=== PATIENT | female | born 1980 | race Caucasian/White ===

== ENCOUNTER 2019-12-09 10:45 | Inpatient (IN) | payer OTHER, SELFPAY ==
[2019-12-09 10:58] VITALS: BMI 23.8
[2019-12-09 11:02] VITALS: BP 118/72; PULSE 57; RESP 16; TEMP 36.6; O2SAT 97
--- NOTE | 2019-12-09 11:05 | W.ED.PSYCH ---
HPI - Psych General: Chief Complaint: Psychiatric Symptoms Stated Complaint: NPU DIRECT ADMIT Time Seen by Provider: 12/09/19 10:50 Source: patient and EMS Mode of arrival: EMS Limitations: no limitations History of Present Illness: HPI Narrative: 31-year-old female who is being transferred here from [facility] for auditory hallucinations along with some suicidal thoughts. Patient placed in a 96-hour hold there. Patient thinks she is going to of COVID. She denies any cough or fever. Associated symptoms: Reports auditory hallucinations and depression Review of Systems Const: Denies: fever(s), chills, body aches or change in appetite Eyes: Denies: blurry vision or eye discomfort ENMT: Denies: throat pain or dental pain Card: Denies: chest pain Resp: Denies: dyspnea GI: Denies: abdominal pain, nausea, vomiting or diarrhea : Denies: dysuria Musc: Denies: neck pain or back pain Skin/Breast: Denies: rash Neuro: Denies: headache(s) Psych: Reports: depression and auditory hallucinations Mitch/Lymph: Denies: easy bruising All/Imm: Denies: urticaria [facility] Female Reproductive History: Date of last menstrual period: 12/09/19 Physical Exam Const: COMMON NORMALS: no acute distress, patient oriented x3 and healthy appearing HENMT: COMMON NORMALS: normocephalic and atraumatic HEAD & SCALP: normocephalic and atraumatic Eye: COMMON NORMALS: Equal, round and reactive pupils present and EOMs intact bilaterally PUPIL: Yes Equal, round and reactive pupils present Neck/C-Spine: COMMON NORMALS: full ROM and supple Chest: COMMONS NORMALS: normal inspection of the chest and normal palpation of entire chest wall Resp: COMMON NORMALS: normal respiratory effort, No retractions, No use of accessory muscles and clear to auscultation bilaterally AUSCULTATION: clear to auscultation bilaterally Cardio: COMMON NORMALS: regular rate, regular rhythm and No murmurs present (Cardio) RATE: regular rate RHYTHM: regular rhythm GI: COMMON NORMALS: Normal to inspection, nondistended, normoactive bowel sounds present, Soft to palpation, non-tender and no masses PALPATION: Yes Soft to palpation Extremity: COMMON NORMALS: normal to inspection and full ROM Neuro: COMMON NORMALS: patient oriented x3, moves all extremities and no focal motor deficits Psych: COMMON NORMALS: Normal thought process present and cooperative MOOD & AFFECT: Yes depressed mood THOUGHT PROCESS: Normal thought process present Skin: COMMON NORMALS: no rashes or lesions noted and no wounds GENERAL SKIN EXAM: no rashes or lesions noted MDM - Psych MDM Narrative: Medical decision making narrative: Patient presents here with suicidal ideations. Patient's being admitted to the psychiatric unit. She has no cough or fever. I spoke to Dr. Randolph and will admit. Patient is also having hallucinations Coding Level of Care Code ED X Ray Technician for Chg Fwd Exam Comprehensive
[2019-12-09 11:42] VITALS: BP 111/79; PULSE 57; RESP 16; TEMP 36.6; O2SAT 97
[2019-12-09 11:57] VITALS: BP 120/71; PULSE 50; RESP 16; TEMP 37.1; O2SAT 99
[2019-12-09 14:00] VITALS: BP 120/71; PULSE 50; RESP 16; TEMP 37.1; O2SAT 99
--- NOTE | 2019-12-09 16:55 | PC.NURSE ---
PATIENT REPORTED THAT SHE BREAST FEEDS HER BABY AND IS WORRIED THAT HER BREAST MILK WILL DRY UP. ABLE TO GET A HAND HELD PUMP FROM THE HEALTH DEPARTMENT. RELAYED THIS TO PATIENT WHO STARTED YELLING AND SLAMMING DISHES FROM HER TRAY IN THE DAYROOM. STATES YOU JUST WANNA HOLD ME HERE FOR ANOTHER THIRTY DAYS, I NEVER SEE MY CHILDREN AND YOUR TRYING TO KEEP ME AWAY FROM THEM. PATIENT IS PARANOID AND THINKS THAT SOMEONE HAS STOLEN HER IDENTITY. RE-DIRECTED PATIENT WHO IS STILL UPSET, AND REFUSES TO USE BREAST PUMP AT THIS TIME.PATIENT REPORTS HER IS BOTTLE FEEDING WITH FORMULA AT THIS TIME WILL CONT TO MONITOR, SUPPORT AND REDIRECT NEEDED.
[2019-12-09 19:58] VITALS: BP 110/79; PULSE 53; RESP 17; TEMP 36.6; O2SAT 97
[2019-12-10] MEDS: nicotine 2 mg Gum BUCCAL (04:41)
[2019-12-10 06:00] VITALS: RESP 15
[2019-12-10 07:05] VITALS: BP 113/73; PULSE 75; RESP 15; TEMP 36.6; O2SAT 98
--- NOTE | 2019-12-10 08:00 | PM.NHP ---
Providers/Chief Complaint Admitting Physician: Edison Randolph MD Chief Complaint: NPU DIRECT ADMIT HPI NPU History of Present Illness Chief complaint: Where am I? What day is this? History of present illness:Danika Michaels is a 39 year old female who was transferred from the [facility] under a 96-hour involuntary commitment. The patient is not a reliable source of information at this time so most of the information in this assessment comes from my brief interview with her and review of the information provided by the hospital. The patient states that she went to the hospital for her . She is not clear on what that means. She cannot say what she was expecting to happen at the hospital. In fact, it is not clear how she actually wound up at the hospital. She reports that she was transported to this place against her will by police. She does not know where she is at. She does not know what city she is in. She does not know why she is here. She is confused and fearful. She is suspicious but not paranoid. She provided no personal information other than spontaneously recalling the phone numbers of her and her mother which she requested to call. She otherwise did not participate in this interview. For [place] rate reading of the emergency note from Mary Alice Byers DO at [facility] dated 12/09/2019: Patient presents to the ER for auditory hallucinations. Patient delivered her baby approximately 4-1/2 months ago and since then has dealt with anxiety. Progressively for the last past month she has been having auditory hallucinations including paranoid delusions. She denies suicidal ideation or wanting to hurt anyone else including her baby. No history of bipolar schizophrenia. No history of drug use. Patient is unsure if she has been sleeping well or eating well. States that she does not remember. She describes the hallucination as being able to hear the washing machine all throughout the house, somebody posting all of her past emotional trauma on Facebook, people saying that she has a drug house. States the voices will continually tell her that she has COVID. I discussed the patient with her . He states that when her symptoms started initially seemed like she was just losing days. Then she became convinced that there was someone altering her phone and posting things and removing things from her phone. She has called 911 on multiple occasions. Once for bleeding that was smoke in the house and other times because she thought there were people in the house. He states that she he has witnessed her staring at the door stating that somebody is about to come in. Mental health history: No documented history of prior mental health issues. Documentation states specifically that she has no history of drug use and no history of prior psychotic disorder. Social history: She has a 4.5-month-old infant and a 15-year-old son. Documentation indicates that her 's name is Garth but he goes by Rafael. Legal history: There is no public record of prior arrests or convictions. Past medical history: Patient is by 4.5 months. She has a history of asthma, calcium deficiency iron deficiency and a tilted uterus. Surgical history is positive for colonoscopy D and E second trimester and a laparoscopic cholecystectomy. She smokes 1/2 pack of cigarettes per day. Laboratories on admission are significant for an elevated WBC at 12.39. Otherwise CBC is within normal limits. Comprehensive metabolic panel was within normal limits as were thyroid function numbers. Urine drug screen was negative. test was negative. Head CT showed no acute intracranial findings. Meds NPU Home Medications Medication Instructions Recorded Confirmed Last Taken Type iron 325 mg PO DAILY 12/09/19 12/09/19 Unknown History norethindrone (contraceptive) 0.35 mg PO DAILY 12/09/19 12/09/19 Unknown History Allergies Allergy/AdvReac Type Severity Reaction Status Date / Time citric acid Allergy Unknown Verified 12/09/19 11:05 Penicillins Allergy Unknown Verified 12/09/19 11:05 Sulfa (Sulfonamide Allergy Unknown Verified 12/09/19 11:05 Antibiotics) Mental Status Exam MSE Comments: Mental Status Exam: The patient is a blonde haired blue-eyed alert interpersonally engaged woman appearing approximately her stated age. She ambulates without difficulty with no notable focal neurological deficits. Eye contact is good. Her attitude is suspicious and confused but not overtly paranoid. She is not believed to be a reliable informant though she really has not provided any information of relevance. Appearance: hygiene is good; no gross neurological deficits., gait is unremarkable; AIMS=0 Speech: Speech is of normal rate and rhythm and easily understood. Thought processes: Thought processes are unable to be assessed by current information. Judgment is assumed to be not adequate for safety. Psychotic processes: There is no indication of guarding or paranoia. There is no attention to the internal stimuli. Auditory and visual hallucinations are denied. However, her her demeanor is 1 of persistently perplexed and it may be amplified if she is having auditory hallucinations. Judgment: Insight is poor. Problem solving skills are unable to be assessed Orientation: The patient is oriented to person, and situation. Memory: no deficits noted in immediate, intermediate, or remote spheres. Attention: The patient is alert and interpersonally engaged. Language: Verbalizations are coherent. Fund of knowledge: Fund of knowledge is not assessed Affect/Mood: Affect is perplexed with a unknown mood. She denied suicidal ideation Affective range constricted Psychosis: perception appears to be significantly impaired though the nature of that impairment is unclear. She demonstrates good memory but her suspiciousness prevents her from engaging in the interview enough to allow full assessment. Reality testing is challenged. 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 There are reports in the documents indicating that she has experiencing auditory hallucinations. She is not reporting that today. However she does appear to be suspicious and perplexed to an extent that prevents her in engaging in this interview. She is believed to be a potential danger to herself and others until she can establish that she has good reality testing and problem solving skills. At this point, there is no indication that she is suffering from depression but to, it is not ruled out. Treatment plan: Due to the psychiatric conditions and treatment listed in the Assessment and Plan - the patient requires continued hospitalization. Intent at this point is primarily for observation to further delineate her diagnostic status and then respond accordingly. Will provide a safe and therapeutic environment for patient.. Will continue inpatient treatment to allow for medication adjustment and monitoring. Will continue q15 min safety checks. Will continue current medications and monitor for medication side effects. Monitor patient's mood, sleep, appetite, and behavior closely. Encourage patient to participate in individual and group therapeutic sessions on the coronel. Estimated length of stay 5 days The expected benefits and potential side effects of patient's psychiatric medications were discussed with the patient. The patient understands and consents to treatment.CRITERIA FOR DISCHARGE: stable on medications and no longer an imminent risk Involuntary Hold Information 96 Hour Hold: 96 Hour Involuntary Admission: Yes 96 Hour Hold Ending Date: 12/15/19 96 Hour Hold Ending Time: 11:58 Attestations NPU Medical Necessity Statement*: Patient will remain in the hospital another 4-6 nights for the completion of her 96-hour involuntary commitment. Coding Level of Care Code Acute [employer] Field Supervisor for Batsheva Mullen
[2019-12-10 14:00] VITALS: BP 114/67; PULSE 63; RESP 20; TEMP 36.9; O2SAT 95
[2019-12-10 22:00] VITALS: BP 111/66; PULSE 52; RESP 18; TEMP 36.8; O2SAT 97
[2019-12-11 06:00] VITALS: BP 109/66; PULSE 50; RESP 17; TEMP 36.5; O2SAT 96
--- NOTE | 2019-12-11 07:44 | PC.NURSE ---
Danika states that she is . She says her child is a 4 month old baby girl named Antonette. She misses her and wants to hold her again. She does not know why she is here or where her daughter is this morning. She seems confused and disoriented.
--- NOTE | 2019-12-11 09:42 | PM.NPN ---
Subjective NPU Subjective: Interval history: Patient raises her complaint that she is being held against her will and that if this is completely unfair that we can take all of her freedom away based on the report of a nurse and a doctor that she is only met once. She addresses the issues of people posting things on Facebook about her and hearing voices as being the results of events in her life where people have hijacked friends Facebook accounts and posting false things and that she has speakers throughout her house such that the noises that she is hearing are from the effects of the speakers. She adamantly denies hearing having auditory hallucinations. She adamantly denies being an imminent danger to self or others. Mental Status Exam MSE Comments: Mental Status Exam: The patient is a blonde haired blue-eyed alert interpersonally engaged woman appearing approximately her stated age. She ambulates without difficulty with no notable focal neurological deficits. Eye contact is good. Her attitude is suspicious and confused but not overtly paranoid. She is not believed to be a reliable informant as she is highly motivated to present herself free of any type of mental health issues or under the influence of auditory hallucinations. Appearance: hygiene is good; no gross neurological deficits., gait is unremarkable; AIMS=0 Speech: Speech is of normal rate and rhythm and easily understood. Thought processes: Thought processes are logical and goal-directed. Judgment is adequate for safety. Psychotic processes: There is no indication of guarding or paranoia. There is no attention to the internal stimuli. Auditory and visual hallucinations are denied. However, her her demeanor is 1 of persistently perplexed and it may be amplified if she is having auditory hallucinations. Judgment: Insight is poor. Problem solving skills are adequate for safety Orientation: The patient is oriented to person, and situation. Memory: no deficits noted in immediate, intermediate, or remote spheres. Attention: The patient is alert and interpersonally engaged. Language: Verbalizations are coherent. Fund of knowledge: Fund of knowledge is not assessed Affect/Mood: Affect is angry with a self-reported euthymic mood. She denied suicidal ideation Affective range labile. Psychosis: The patient denies having auditory and visual hallucinations. Reality testing is challenged. 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 There are reports in the documents indicating that she has experiencing auditory hallucinations. She is not reporting that today. However she does appear to be suspicious and perplexed to an extent that prevents her in engaging in this interview. She is believed to be a potential danger to herself and others until she can establish that she has good reality testing and problem solving skills. At this point, there is no indication that she is suffering from depression but to, it is not ruled out. Treatment plan: Due to the psychiatric conditions and treatment listed in the Assessment and Plan - the patient requires continued hospitalization. Intent at this point is primarily for observation to further delineate her diagnostic status and then respond accordingly. Will provide a safe and therapeutic environment for patient.. Will continue inpatient treatment to allow for medication adjustment and monitoring. Will continue q15 min safety checks. Hospital day #1 This is a patient who has been perplexed and confused over the past 24 hours since arriving at her the [facility]. There are reports in the documents indicating that she has experiencing auditory hallucinations. She is not reporting that today. However she does appear to be suspicious and perplexed to an extent that prevents her in engaging in this interview. She is believed to be a potential danger to herself and others until she can establish that she has good reality testing and problem solving skills. At this point, there is no indication that she is suffering from depression but to, it is not ruled out. Hospital day #2: At this point, we have no hard evidence that the patient is laboring under auditory hallucinations. However she continues to be suspicious and angry. Her explanations for events that are described in her affidavit are not completely logical. However she is displaying no overt signs of psychosis at this time. No medications are indicated at this time and she will continue to be observed. Monitor patient's mood, sleep, appetite, and behavior closely. Encourage patient to participate in individual and group therapeutic sessions on the coronel. Estimated length of stay 3 more days The expected benefits and potential side effects of patient's psychiatric medications were discussed with the patient. The patient understands and consents to treatment.CRITERIA FOR DISCHARGE: stable on medications and no longer an imminent risk Involuntary Hold Information 96 Hour Hold: 96 Hour Involuntary Admission: Yes 96 Hour Hold Ending Date: 12/15/19 96 Hour Hold Ending Time: 11:58 Attestations NPU Medical Necessity Statement*: Patient will remain in the hospital another 2-3 nights for completion of her 96-hour involuntary commitment. Coding Level of Care Code Acute Anesthetist for Batsheva Mullen
--- NOTE | 2019-12-11 10:07 | PC.NURSE ---
Patient states her and people from social media are messing with her. She is upset that her sent her 2 older sons Emryl and she is missed her sons birthday. 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 She states she has no recollection of being in the ER prior to admission and woke up with an IV in her arm and is being held against her will.
[2019-12-11 13:44] VITALS: BP 107/74; PULSE 52; RESP 18; TEMP 36.4; O2SAT 99
--- NOTE | 2019-12-11 15:33 | PC.SOCIAL ---
this worker talked to . he said that patient does not have a psychiatric history. It has only been in the last 2 months that he has seen any symptoms. patient's mom will probably stay with patient and the baby when she is released from the hospital. said that he has talked to the doctor and the nurses and the patient while she has been here. he said that she does have an appointment already for outpatient mental health services. This worker asked for the details. As of right now, patient sees her OBGYN doctor. said that baby is fine and is on formula fine. patient has no substance abuse problem. supports patient taking medicine if necessary but is good with her having talk therapy too. If both is needed, then fine. I want my back, he said.
[2019-12-11 22:00] VITALS: BP 118/73; PULSE 52; RESP 18; TEMP 36.6; O2SAT 97
[2019-12-12 06:00] VITALS: BP 100/59; PULSE 49; RESP 17; TEMP 36.9; O2SAT 96
--- NOTE | 2019-12-12 08:10 | PC.NURSE ---
Patient states that she forget things at times but always goes back and figures it out. She is concerned about her home life. She has children and wants to get home as soon as possible. Concerned that others are caring for her children in her absence and about the ability of her husnand to work and care for children
[2019-12-12] MEDS: ferrous sulfate EC 325 mg Tablet PO (08:36)
--- NOTE | 2019-12-12 11:33 | P.DS_ITS ---
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 What day is this? History of present illness:Danika Michaels is a 39 year old female who was transferred from the [facility] under a 96-hour involuntary commitment. The patient is not a reliable source of information at this time so most of the information in this assessment comes from my brief interview with her and review of the information provided by the hospital. The patient states that she went to the hospital for her . She is not clear on what that means. She cannot say what she was expecting to happen at the hospital. In fact, it is not clear how she actually wound up at the hospital. She reports that she was transported to this place against her will by police. She does not know where she is at. She does not know what city she is in. She does not know why she is here. She is confused and fearful. She is suspicious but not paranoid. She provided no personal information other than spontaneously recalling the phone numbers of her and her mother which she requested to call. She otherwise did not participate in this interview. For Gustavus rate reading of the emergency note from Mary Alice Byers DO at [facility] dated 12/09/2019: Patient presents to the ER for auditory hallucinations. Patient delivered her baby approximately 4-1/2 months ago and since then has dealt with anxiety. Progressively for the last past month she has been having auditory hallucinations including paranoid delusions. She denies suicidal ideation or wanting to hurt anyone else including her baby. No history of bipolar schizophrenia. No history of drug use. Patient is unsure if she has been sleeping well or eating well. States that she does not remember. She describes the hallucination as being able to hear the washing machine all throughout the house, somebody posting all of her past emotional trauma on Facebook, people saying that she has a drug house. States the voices will continually tell her that she has COVID. I discussed the patient with her . He states that when her symptoms started initially seemed like she was just losing days. Then she became convinced that there was someone altering her phone and posting things and removing things from her phone. She has called 911 on multiple occasions. Once for bleeding that was smoke in the house and other times because she thought there were people in the house. He states that she he has witnessed her staring at the door stating that somebody is about to come in. Mental health history: No documented history of prior mental health issues. Documentation states specifically that she has no history of drug use and no history of prior psychotic disorder. Social history: She has a 4.5-month-old and a 15-year-old son. Documentation indicates that her 's name is Garth but he goes by Rafael. Legal history: There is no public record of prior arrests or convictions. Past medical history: Patient is by 4.5 months. She has a history of asthma, calcium deficiency iron deficiency and a tilted uterus. Surgical history is positive for colonoscopy D and E second trimester and a laparoscopic cholecystectomy. She smokes 1/2 pack of cigarettes per day. Laboratories on admission are significant for an elevated WBC at 12.39. Otherwise CBC is within normal limits. Comprehensive metabolic panel was within normal limits as were thyroid function numbers. Urine drug screen was negative. test was negative. Head CT showed no acute intracranial findings. Hospital Course Hospital Course Treatment plan: Due to the psychiatric conditions and treatment listed in the Assessment and Plan - the patient requires continued hospitalization. Intent at this point is primarily for observation to further delineate her diagnostic status and then respond accordingly. Will provide a safe and therapeutic environment for patient.. Will continue inpatient treatment to allow for medication adjustment and monitoring. Will continue q15 min safety checks. Hospital day #1 This is a patient who has been perplexed and confused over the past 24 hours since arriving at her [facility]. There are reports in the documents indicating that she has experiencing auditory hallucinations. She is not reporting that today. However she does appear to be suspicious and perplexed to an extent that prevents her in engaging in this interview. She is believed to be a potential danger to herself and others until she can establish that she has good reality testing and problem solving skills. At this point, there is no indication that she is suffering from depression but to, it is not ruled out. Hospital day #2: At this point, we have no hard evidence that the patient is laboring under auditory hallucinations. However she continues to be suspicious and angry. Her explanations for events that are described in her affidavit are not completely logical. However she is displaying no overt signs of psychosis at this time. No medications are indicated at this time and she will continue to be observed. Discharge Summary Diagnosis: Brief psychotic episode with stressor ` Paranoid personality disorder Assessment: The patient was admitted under the assumption that she was suffering under depression with psychotic features. At the time of admission, she was quite suspicious and confused but not paranoid. She is mildly disorganized. However there is no indication of experiencing first rank symptoms such as auditory or visual hallucinations. As time proceeded, it b ecame apparent that she was free of symptoms of clinical depression. However she did demonstrate a longstanding history of being generally suspicious with an expectation that her environment met her harm and that people would take advantage of her. Under the social isolation of being the mother of an , she gave in to this it tendency of an accurate thinking. As she engaged in the unit milieu, her degree of sense of persecution and fearfulness slowly resolved. In conversation with her , he confirmed this pattern. Involuntary Hold Information 96 Hour Hold: 96 Hour Involuntary Admission: Yes 96 Hour Hold Ending Date: 12/15/19 96 Hour Hold Ending Time: 11:58 Discharge Data Vitals: Last Vital Signs Temp 98.4 F 12/12/19 06:00 Pulse 49 L 12/12/19 06:00 Resp 17 12/12/19 06:00 BP 100/59 12/12/19 06:00 Pulse Ox 96 12/12/19 06:00 Discharge Plan Discharge Patient Disposition: Home, Self-Care Condition: Stable Prescriptions: Continued iron 325 mg (65 mg iron) Tablet 325 mg PO DAILY RF: 0 norethindrone (contraceptive) 0.35 mg tablet 0.35 mg PO DAILY RF: 0 Discharge Orders: Discharge Order (Routine); Ordered 12/12/19 Ordered By: Edison Randolph Referrals: Dr. Keith [Other] - 4-7 days (follow-up with your current provider, Dr. Keith. Also, follow-up with the recommendations already presented to you for individual therapy. Currently, the name is unknow to the staff at [facility]. ) Activity Restrictions/Additional Instructions: On condition of release from this 96-hour involuntary commitment, the patient agrees to comply with a certain positive therapeutic interventions. She agrees to attend individual psychotherapy appointments which have already been established with a local [facility]. She agrees to increase her degree of social interaction whether through attending yazidism or joining the suggested women's group by her peers. She was understanding and that this was was an instruction for therapeutic benefit and not just for hedonic activity. She was agreeable to this. Her agreed to facilitate such therapeutic endeavors. Having assistance with your baby is recommended for now. It is recommended that you have outpatient mental health services. Do talk to your outpatient provider about a plan to make sure you and your baby have all the care that you need at this time. 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
[2019-12-12 12:56] VITALS: BP 100/59; PULSE 49; RESP 17; TEMP 36.9; O2SAT 96
== END 2019-12-12 18:15 | disposition home or self-care (01) | DRG 885 ==
LOC: ER 11:45 → NP 11:48
PROVIDERS: Admitting Provider Psychiatry & Neurology Psychiatry; Emergency Provider Emergency Medicine; Visit Provider Psychiatry & Neurology Psychiatry
DX: F23 Brief psychotic disorder (principal); F60.0 Paranoid personality disorder; F17.210 Nicotine dependence, cigarettes, uncomplicated
CPT/HCPCS: 12345; 99284